=== PATIENT | male | born 1945 | race Two or more races ===

== ENCOUNTER 2018-05-23 13:45 | Outpatient (CLI) | payer MEDICARE, OTHER | END 2018-05-23 23:59 | disposition home or self-care (01) | LOC: WOU 13:45 | PROVIDERS: ATTEND Podiatrist Foot & Ankle Surgery | DX: I96 Gangrene, not elsewhere classified (principal); L97.518 Non-pressure chronic ulcer of other part of right foot with other specified severity; I10 Essential (primary) hypertension; F17.200 Nicotine dependence, unspecified, uncomplicated; Z79.82 Long term (current) use of aspirin; Z79.891 Long term (current) use of opiate analgesic | CPT/HCPCS: A6402; G0463 ==

== ENCOUNTER 2018-05-23 14:28 | Outpatient (CLI) | payer MEDICARE, OTHER | END 2018-05-23 23:59 | disposition home or self-care (01) | LOC: VASLAB 14:28 | PROVIDERS: ATTEND Surgery Vascular Surgery | DX: Z75.3 Unavailability and inaccessibility of health-care facilities (principal) | CPT/HCPCS: A6402 ==

== ENCOUNTER 2018-06-06 12:50 | Outpatient (CLI) | payer MEDICARE, OTHER | END 2018-06-06 23:59 | disposition home or self-care (01) | LOC: WOU 12:50 | PROVIDERS: ATTEND Podiatrist Foot & Ankle Surgery | DX: I96 Gangrene, not elsewhere classified (principal); L97.518 Non-pressure chronic ulcer of other part of right foot with other specified severity; Z79.82 Long term (current) use of aspirin; Z79.891 Long term (current) use of opiate analgesic | CPT/HCPCS: G0463 ==